=== PATIENT | female | born 1955 | race Caucasian/White ===

== ENCOUNTER → 2017-12-10 | Outpatient (CLI) | payer OTHER ==
[~2017-12-10] MED LIST: ACEBUTCAFT PO; FLUO20 PO; HYDACE5325 PO; SUMA25 PO; ZOLP5 PO
== END | disposition home or self-care (01) ==
LOC: LAB 11:31 → LAB SHORT 11:31
PROVIDERS: Obstetrics & Gynecology
DX: Z01.419 Encounter for gynecological examination (general) (routine) without abnormal findings (principal)
CPT/HCPCS: 87624; G0123

== ENCOUNTER → 2019-12-28 | Outpatient (CLI) | payer OTHER | END | disposition home or self-care (01) | LOC: PLD 12:13 → LAB SHORT 12:13 | DX: D48.5 Neoplasm of uncertain behavior of skin (principal) | CPT/HCPCS: 88305 ==

== ENCOUNTER → 2021-05-29 | Outpatient (CLI) | payer MEDICARE ==
[2021-05-30 10:29] LABS: Stool Occult Bld Immuno 1 Negative (NEGATIVE)
== END | disposition home or self-care (01) ==
LOC: LAB 15:00 → LAB SHORT 15:00
PROVIDERS: Family Medicine
DX: Z12.11 Encounter for screening for malignant neoplasm of colon (principal); E78.5 Hyperlipidemia, unspecified
CPT/HCPCS: G0328

== ENCOUNTER → 2023-07-23 | Outpatient (CLI) | payer MEDICARE | LOC: LAB SHORT 07:39 → LAB 07:39 | DX: B35.1 Tinea unguium (principal); L60.2 Onychogryphosis | CPT/HCPCS: 88305; 88312 ==

== ENCOUNTER → 2024-01-20 | Outpatient (CLI) | payer MEDICARE | END | disposition home or self-care (01) | LOC: LAB SHORT 15:28 → LAB 15:28 | DX: N39.0 Urinary tract infection, site not specified (principal) | CPT/HCPCS: 87086 ==

== ENCOUNTER 2024-09-24 11:47 | Day surgery (SDC) | payer MEDICARE ==
[~2024-09-24] VITALS: Ht 167.6 cm; Wt 74.2 kg
[~2024-09-24 11:47] MED LIST changes: +ALEN70 PO; +FAMC250 PO; +HYDROCODONE-AC1 EAC7; +NS 500 ML IV ONE; +Prozac20 MG PO; +TRAZ50 PO
[2024-09-24] MEDS ORDERED: propofoL 20 ML IV ONE ×2 (12:08→12:45)
[2024-09-24] MEDS ORDERED: NARATRIPTAN HCL1 MG PO (12:09)
[2024-09-24] MEDS ORDERED: NS 500 ML IV ONE (12:24)
--- NOTE | 2024-09-24 12:29 | NUR ---
09/24/24 1229 Doreen Martínez TIME OUT DONE PRIOR TO BLOCK WITH DR LAUGHLIN. PT TOLERATED BLOCK WELL.
[2024-09-24 13:06] VITALS: BP 116/66
== END 2024-09-24 13:37 | disposition home or self-care (01) ==
LOC: ORSCSDS 11:47
PROVIDERS: Orthopaedic Surgery
PROC: 0LB70ZZ Excision of Right Hand Tendon, Open Approach (ICD-10-PCS; principal; 2024-09-24 13:00)
DX: M67.441 Ganglion, right hand (principal); F41.9 Anxiety disorder, unspecified; F32.A Depression, unspecified; Z79.899 Other long term (current) drug therapy
CPT/HCPCS: 88304; J2704; J7040

== ENCOUNTER → 2025-03-23 | Outpatient (CLI) | payer MEDICARE ==
[~2025-03-23] MED LIST changes: +NARATRIPTAN HCL1 MG PO; -NS 500 ML IV ONE
== END ==
LOC: LAB 15:52 → LAB SHORT 15:52
DX: N39.0 Urinary tract infection, site not specified (principal)
CPT/HCPCS: 87077; 87086; 87186

== ENCOUNTER → 2025-03-29 | Outpatient (CLI) | payer MEDICARE | LOC: LAB SHORT 16:32 → LAB 16:32 | DX: R30.0 Dysuria (principal); N39.0 Urinary tract infection, site not specified; R35.0 Frequency of micturition | CPT/HCPCS: 87086 ==